=== PATIENT | female | born 1995 | race African-American/Black ===

== ENCOUNTER 2018-08-21 22:40 | Emergency (ER) | payer OTHER ==
[~2018-08-21] VITALS: Ht 157.5 cm; Wt 72.7 kg
[2018-08-22 00:02] LABS: BASO % 0.3 % (0.0-1.0); EOS % 0.8 % (0.0-3.0); HEMATOCRIT 38.6 % (36.0-47.0); HEMOGLOBIN 12.4 g/dl (12.0-15.5); LYMPH # 1.7 10^3/uL (1.5-6.5); MEAN CORPUSCULAR HEMOGLOBIN 28.6 pg (27.0-33.0); MEAN CORPUSCULAR HGB CONC 32.1 g/dl (32.0-36.5); MEAN CORPUSCULAR VOLUME 88.9 fl (80.0-96.0); MONO # 0.3 10^3/uL (0.0-0.8); MONO % 7.4 % (0.0-5.0); NEUTROPHILS # 1.7 10^3/uL (1.8-7.7); NEUTROPHILS % 45.2 % (36.0-66.0); PLATELET COUNT, AUTOMATED 224 10^3/uL (150-450); RED BLOOD COUNT 4.34 10^6/uL (4.00-5.40); WHITE BLOOD COUNT 3.7 10^3/uL (4.0-10.0)
[2018-08-22 00:12] LABS: INR 0.99; PROTHROMBIN TIME 13.2 SECONDS (12.1-14.4)
[2018-08-22 00:13] LABS: PARTIAL THROMBOPLASTIN TIME 26.8 SECONDS (25.4-37.6)
[2018-08-22 00:16] LABS: D-DIMER QUANT < 270 ng/ml (<500)
[2018-08-22 00:38] LABS: HCG, SERUM QUALITATIVE NEGATIVE (NEGATIVE)
[2018-08-22 00:42] LABS: ALBUMIN 4.2 GM/DL (3.2-5.2); ALT/SGPT 25 U/L (12-78); BILIRUBIN,DIRECT < 0.1 MG/DL (0.0-0.2); BILIRUBIN,TOTAL 0.2 MG/DL (0.2-1.0); BLOOD UREA NITROGEN 9 MG/DL (7-18); CALCIUM LEVEL 9.6 MG/DL (8.5-10.1); CARBON DIOXIDE LEVEL 28 MEQ/L (21-32); CHLORIDE LEVEL 103 MEQ/L (98-107); CK-MB VALUE MASS < 1.0 NG/ML (<3.6); CPK CREATINE PHOSPHOKINASE 167 U/L (26-192); CREATININE FOR GFR 0.88 MG/DL (0.55-1.30); FREE T4 0.89 NG/DL (0.76-1.46); GLOMERULAR FILTRATION RATE > 60.0 (>60); GLUCOSE, FASTING 93 MG/DL (70-100); LIPASE 130 U/L (73-393); MAGNESIUM LEVEL 1.9 MG/DL (1.8-2.4); POTASSIUM SERUM 3.9 MEQ/L (3.5-5.1); SODIUM LEVEL 137 MEQ/L (136-145); TOTAL PROTEIN 8.2 GM/DL (6.4-8.2); TROPONIN I < 0.02 NG/ML (< 0.10)
[2018-08-22 01:23] VITALS: BP 107/59
--- NOTE | 2018-08-22 07:51 | REP ---
Chest x-ray: Two views. History: Chest pain . Comparison study: No comparison . Findings: The lungs are well inflated and free of infiltrate. The pleural angles are sharp. The heart size is normal. Pulmonary vasculature is not increased. No significant bony abnormality is seen. Impression: Negative chest x-ray. Electronically Signed by Jimi Junior MD 08/22/2018 07:42 A
--- NOTE | 2018-08-22 11:22 | ECGEPIP ---
Stationary ECG Study [facility] ED Test Date: 2018-08-21 Pat Name: LUIS FERNANDO CUNNINGHAM Department: Room: - Gender: F Closing Supervisor: shaye : 1995 Requested By: MARIN GUTIERREZ PA-C Order Number: [id number] Reading MD: Fidel Khalil Measurements Intervals [place] Rate: 66 P: 68 MI: 162 QRS: 55 QRSD: 85 T: 37 QT: 376 QTc: 395 Interpretive Statements SINUS RHYTHM BENIGN EARLY REPOLARIZATION NO PRIORS FOR COMPARISON Electronically Signed On 08-22-2018 11:22:51 EST by Fidel Khalil
== END 2018-08-22 01:24 | disposition home or self-care (01) ==
LOC: M ED 22:40
DX: J20.8 Acute bronchitis due to other specified organisms (principal)

== ENCOUNTER 2018-10-13 17:31 | Emergency (ER) | payer OTHER ==
[~2018-10-13] VITALS: Ht 157.5 cm; Wt 72.7 kg
[2018-10-13 18:57] LABS: BASO % 0.2 % (0.0-1.0); EOS % 0.6 % (0.0-3.0); HEMATOCRIT 36.1 % (36.0-47.0); HEMOGLOBIN 11.7 g/dl (12.0-15.5); LYMPH % 48.9 % (24.0-44.0); MEAN CORPUSCULAR HGB CONC 32.4 g/dl (32.0-36.5); MEAN CORPUSCULAR VOLUME 89.4 fl (80.0-96.0); MONO # 0.5 10^3/uL (0.0-0.8); NEUTROPHILS # 2.6 10^3/uL (1.8-7.7); NEUTROPHILS % 42.1 % (36.0-66.0); PLATELET COUNT, AUTOMATED 238 10^3/uL (150-450); RED BLOOD COUNT 4.04 10^6/uL (4.00-5.40); WHITE BLOOD COUNT 6.2 10^3/uL (4.0-10.0)
[2018-10-13] MEDS ORDERED: FAMOTIDINE IV BAG 20 MG in APPROPRIATE DILUENT 1 EA IV ONE (19:00)
[2018-10-13] MEDS ORDERED: ONDANSETRON 4MG/2ML VIAL (J2405) IV ONE (19:00)
[2018-10-13] MEDS ORDERED: NS 1,000 ML IV ONE (19:00)
[2018-10-13 19:34] LABS: HCG, SERUM QUALITATIVE POSITIVE (NEGATIVE)
[2018-10-13 19:36] LABS: ALBUMIN 3.9 GM/DL (3.2-5.2); ALT/SGPT 21 U/L (12-78); AMYLASE 100 U/L (25-115); BILIRUBIN,DIRECT < 0.1 MG/DL (0.0-0.2); BILIRUBIN,TOTAL 0.1 MG/DL (0.2-1.0); BLOOD UREA NITROGEN 8 MG/DL (7-18); CALCIUM LEVEL 8.3 MG/DL (8.5-10.1); CARBON DIOXIDE LEVEL 24 MEQ/L (21-32); CHLORIDE LEVEL 105 MEQ/L (98-107); CREATININE FOR GFR 0.76 MG/DL (0.55-1.30); GLOMERULAR FILTRATION RATE > 60.0 (>60); GLUCOSE, FASTING 80 MG/DL (70-100); LIPASE 80 U/L (73-393); POTASSIUM SERUM 3.6 MEQ/L (3.5-5.1); SODIUM LEVEL 138 MEQ/L (136-145); TOTAL PROTEIN 7.5 GM/DL (6.4-8.2)
[2018-10-13 20:21] LABS: HCG, SERUM QUANTITATIVE 6128 MIU/ML
--- NOTE | 2018-10-13 22:07 | REPVR ---
EXAM: US First Trimester, Transabdominal EXAM DATE/TIME: 10/13/2018 9:10 PM CLINICAL HISTORY: 23 years old, female; Pain; complicated by abdominal or pelvic pain; Left lower quadrant; First trimester; Gestational age or lmp: 5 week 2 day; ; Additional info: Abd pain TECHNIQUE: Real-time transabdominal obstetrical ultrasound of the maternal pelvis and a first trimester , less than 14 weeks 0 days, with image documentation. COMPARISON: No relevant prior studies available. FINDINGS: GESTATION: Gestation: Gestational sac within the uterus containing a yolk sac but no pole at this time. Placenta: Unremarkable. No subchorionic bleed. BIOMETRY: Mean sac diameter: Mean sac size is 9 mm suggesting an age of 5 weeks 5 days. MATERNAL: Uterus: The uterus measures 9.9 cm in its cephalocaudad dimension and 5.4 x 5.8 cm in its AP and lateral dimensions transabdominal. The uterus measures 9.7 cm in its cephalocaudad dimension and 6.1 cm in its lateral dimension transvaginal. The endometrium measures 15 mm. Cervix: Unremarkable. Right adnexa: Right parovarian cyst/follicle measuring 19 x 11 x 12 mm. The right ovary measures 4.5 x 2.1 x 2.8 cm with probable corpus luteum cyst measuring 2.7 x 1.8 x 2.5 cm. There is right ovarian blood flow. Left adnexa: The left ovary measures 1.6 x 3.1 x 1.3 cm and demonstrates blood flow. Intraperitoneal: No intraperitoneal free fluid. IMPRESSION: 1. Gestational sac within the uterus with a yolk sac but no pole at this time. Mean sac size is 9 mm. Followup in 1-2 weeks may be of benefit for further evaluation. 2. Right parovarian cyst/follicle measuring 19 x 11 x 12 mm. Probable right corpus luteum cyst measuring up to 2.7 cm. 3. Otherwise negative pelvic sonogram. Electronically signed by: Emmanuel Nixon On 10/13/2018 22:06:32 PM
[2018-10-13 22:46] VITALS: BP 125/78
== END 2018-10-13 23:06 | disposition home or self-care (01) ==
LOC: M ED 17:31
DX: O20.0 Threatened abortion (principal); Z3A.01 Less than 8 weeks gestation of pregnancy
CPT/HCPCS: 76801; 76817; 80048; 80076; 81001; 82150; 83690; 84702; 84703; 85025; 93976; 96374; 96375; 99284; J2405

== ENCOUNTER 2018-11-24 14:49 | Emergency (ER) | payer OTHER ==
[~2018-11-24] VITALS: Ht 160 cm; Wt 77.2 kg
[2018-11-24 16:43] LABS: HEMATOCRIT 38.7 % (36.0-47.0); HEMOGLOBIN 12.7 g/dl (12.0-15.5); MEAN CORPUSCULAR HEMOGLOBIN 28.9 pg (27.0-33.0); MEAN CORPUSCULAR HGB CONC 32.8 g/dl (32.0-36.5); MEAN CORPUSCULAR VOLUME 88.2 fl (80.0-96.0); PLATELET COUNT, AUTOMATED 244 10^3/uL (150-450); RED BLOOD COUNT 4.39 10^6/uL (4.00-5.40); WHITE BLOOD COUNT 6.4 10^3/uL (4.0-10.0)
--- NOTE | 2018-11-24 17:17 | REP ---
Clinical: Vaginal bleeding for viability. Technique: Transabdominal first trimester obstetrical ultrasound with color Doppler evaluation. Findings: Single live early intrauterine is appreciated. Gestational sac with pole identified. [place]-rump length of 55 mm corresponds to 12 weeks 1 day gestational age with estimated date of delivery 06/07/2019 . heart rate equals 169 beats per minute. Placenta is identified posterior fundally and without previa. A large subchorionic hemorrhage is identified in the lower uterine segment measuring 6.8 x 2.9 x 6.9 cm. Maternal ovaries are normal in appearance and vascularity without torsion. Right ovary measures 0.6 x 2.2 x 1.6 cm; RI 0.63 and includes corpus luteal cyst. Left ovary measures 3.4 x 1.7 x 2.0 cm; RI 0.62. Impression: 1. Single live early intrauterine at 12 weeks 1 day gestational age. Complete anatomical assessment should be performed and 19-20 weeks. 2. Large subchorionic hemorrhage identified in the lower uterine segment. Electronically Signed by Tiburcio Pierce MD 11/24/2018 05:09 P
[2018-11-24] MEDS ORDERED: FAMOTIDINE 20 MG TAB PO ONE (17:45)
[2018-11-24 18:14] VITALS: BP 127/84
[2018-11-24 20:24] LABS: CHLAMYDIA DNA AMPLIFICATION NEGATIVE (NEGATIVE); GC DNA AMPLIFICATION NEGATIVE (NEGATIVE)
== END 2018-11-24 18:15 | disposition home or self-care (01) ==
LOC: M ED 14:49
DX: O20.8 Other hemorrhage in early pregnancy (principal); Z3A.12 12 weeks gestation of pregnancy

== ENCOUNTER 2018-12-04 21:35 | Emergency (ER) | payer OTHER ==
[~2018-12-04] VITALS: Ht 160 cm; Wt 77.3 kg
[2018-12-04 21:58] LABS: BASO % 0.5 % (0.0-1.0); EOS # 0.1 10^3/uL (0.0-0.50); EOS % 1.4 % (0.0-3.0); HEMATOCRIT 34.9 % (36.0-47.0); HEMOGLOBIN 11.4 g/dl (12.0-15.5); LYMPH # 1.9 10^3/uL (1.5-6.5); LYMPH % 44.6 % (24.0-44.0); MEAN CORPUSCULAR HEMOGLOBIN 29.3 pg (27.0-33.0); MEAN CORPUSCULAR HGB CONC 32.7 g/dl (32.0-36.5); MEAN CORPUSCULAR VOLUME 89.7 fl (80.0-96.0); MONO # 0.5 10^3/uL (0.0-0.8); MONO % 12.4 % (0.0-5.0); NEUTROPHILS # 1.7 10^3/uL (1.8-7.7); NEUTROPHILS % 40.9 % (36.0-66.0); PLATELET COUNT, AUTOMATED 191 10^3/uL (150-450); RED BLOOD COUNT 3.89 10^6/uL (4.00-5.40); WHITE BLOOD COUNT 4.3 10^3/uL (4.0-10.0)
[2018-12-04 22:19] LABS: BLOOD UREA NITROGEN 10 MG/DL (7-18); CALCIUM LEVEL 8.6 MG/DL (8.5-10.1); CARBON DIOXIDE LEVEL 24 MEQ/L (21-32); CHLORIDE LEVEL 107 MEQ/L (98-107); CREATININE FOR GFR 0.83 MG/DL (0.55-1.30); GLOMERULAR FILTRATION RATE > 60.0 (>60); GLUCOSE, FASTING 101 MG/DL (70-100); POTASSIUM SERUM 3.9 MEQ/L (3.5-5.1); SODIUM LEVEL 139 MEQ/L (136-145)
--- NOTE | 2018-12-04 23:07 | REPVR ---
EXAM: US First Trimester, Transabdominal EXAM DATE/TIME: 12/04/2018 10:14 PM CLINICAL HISTORY: 23 years old, female; Pain; complicated by abdominal or pelvic pain; Lower; First trimester; Gestational age or lmp: 12w 5d; ; Additional info: Abdominal pain/14 weeks TECHNIQUE: Imaging protocol: Real-time transabdominal obstetrical ultrasound of the maternal pelvis and a first trimester , less than 14 weeks 0 days, with image documentation. COMPARISON: No relevant prior studies available. FINDINGS: GESTATION: Gestation: Single live intrauterine gestation. Heart rate: heart rate measures 160 beats per minute. Placenta: Placenta is anterior. Large anechoic collection in the posterior sac measuring 6.2 x 2.4 x 4.5 cm. Amniotic fluid: Amniotic fluid is normal for gestational age. BIOMETRY: Estimated gestational age: Estimated gestational age is 13 weeks 5 day. [place]-Rump length: [place]-rump length measures 7.5 cm. 93 percentile. Estimated due date: Estimated due date is 06/07/2019 by ultrasound. MATERNAL: Uterus: Unremarkable. Cervix: Unremarkable. Right adnexa: Unremarkable. Left adnexa: Unremarkable. Intraperitoneal: No intraperitoneal free fluid. IMPRESSION: 1. Single live intrauterine gestation. 2. There is appropriate interval growth from the prior study. 3. Estimated gestational age 13 weeks 5 day. 4. Estimated due date is 06/07/2019 by ultrasound. 5. Large anechoic collection in the posterior sac. Consistent with resolving subchorionic bleed. Electronically signed by: Mackenzie Gtz On 12/04/2018 23:07:04 PM
[2018-12-05 01:24] VITALS: BP 105/64
== END 2018-12-05 01:26 | disposition home or self-care (01) ==
LOC: M ED 21:35
DX: O99.89 Other specified diseases and conditions complicating pregnancy, childbirth and the puerperium (principal); R10.9 Unspecified abdominal pain; Z3A.13 13 weeks gestation of pregnancy